=== PATIENT | male | born 1960 | race African-American/Black ===

== ENCOUNTER 2019-02-14 15:00 | Outpatient (CLI) | payer BC ==
--- NOTE | 2019-02-14 15:47 | RAD ---
MRI SAFETY CARRASCO SINUS: DATE: 02/14/2019. PROVIDED CLINICAL HISTORY: History of metal in eye. FINDINGS: Frontal Carrasco view of the sinuses was performed for the exclusion of metallic foreign body in the re gion of the orbits. There is no evidence for such. IMPRESSION: As above. POS: OFF
--- NOTE | 2019-02-14 16:13 | MRI ---
MR the lumbar spine without contrast INDICATION: Lumbar radiculopathy COMPARISON: None. TECHNIQUE: Multiplanar multisequence MR images were obtained of lumbar spine without IV contrast. FINDINGS: Bone marrow: Bone marrow signal intensity appears within normal limits. Distal spinal cord and conus: Normal. The conus seen to terminate at L1. Visualized retroperitoneum and paraspinal soft tissues: There are numerous T2 hyperintense lesions se en within the renal sinus suspicious for peripelvic cyst; however, incompletely characterized current study. Vertebral levels: L5-S1: There is a broad-based bulge with facet hypertrophy inducing mild bilateral neural foraminal n arrowing.. L4-5: There is a broad-based bulge with facet hypertrophy inducing moderate bilateral neural foramina l narrowing. L3-4: There is a broad-based bulge with facet hypertrophy inducing mild to moderate central canal rosy rowing with moderate bilateral neural foraminal narrowing. L2-3: There is a broad-based bulge with facet hypertrophy inducing moderate bilateral neural foramina l narrowing. L1-L2: There is a mild broad-based bulge and facet hypertrophy inducing mild left neural foraminal na rrowing. T12-L1: No appreciable central canal or neuroforaminal narrowing. IMPRESSION: 1. Moderate spondylosis of the lumbar spine with prominent neural foraminal narrowing seen from L2-3 through L4-5. 2. Mild neural foraminal narrowing seen at L1-L2 and L5-S1. 3. Bilateral renal peripelvic T2 hyperintensity suspicious for parapelvic cysts. Recommend renal ultr asound for confirmation.
== END 2019-02-14 15:01 | disposition home or self-care (01) ==
LOC: BICMRI 15:00
PROVIDERS: ATTEND Anesthesiology
DX: M47.26 Other spondylosis with radiculopathy, lumbar region (principal); M48.061 Spinal stenosis, lumbar region without neurogenic claudication; M48.07 Spinal stenosis, lumbosacral region
CPT/HCPCS: 70210; 72148